=== PATIENT | male | born 1945 ===

== ENCOUNTER 2020-03-02 15:42 | Emergency (ER) | payer OTHER ==
[2020-03-02] MEDS ORDERED: GLUCAGON 1 MG/VIAL ONE ×2 (16:13→17:19)
--- NOTE | 2020-03-02 18:25 | EDPHYS ---
Physician Documentation [facility] Name: Angelito Age: 75 yrs Sex: Male : 1945 Arrival Date: 03/02/2020 Time: 15:43 Bed 2 Private MD: ED Physician Kali Samson HPI: 03/02 16:09 This 75 yrs old Unknown Male presents to ER via Wheelchair with complaints of Foreign kb Body In Throat, Choked/Choking. 16:09 The patient or guardian reports the patient has a suspected foreign body, of the kb throat. The reported likely foreign body is piece of meat. Onset: The symptoms/episode began/occurred 1 hour(s) ago. Current symptoms: foreign body sensation. Treatment Prior to Arrival: tried to flush, tried to vomit. The patient has experienced similar episodes in the past, a few times. The patient has not recently seen a physician. Pt reports he was eating steak and a piece of meat got stuck in his throat. States he has had this happen before but has always been able to get it up or down. . Historical: - Allergies: 15:52 No Known Allergies; ss - PMHx: 15:52 CVA; Hypertension; ss - PSHx: 15:52 None; ss - Immunization history:: Flu vaccine is up to date. - Social history:: Smoking status: Patient denies any tobacco usage or history of. ROS: 16:08 Constitutional: Negative for fever, chills, and weight loss, Cardiovascular: Negative kb for chest pain, palpitations, and edema, Respiratory: Negative for shortness of breath, cough, wheezing, and pleuritic chest pain, Abdomen/GI: Negative for abdominal pain, nausea, vomiting, diarrhea, and constipation, Back: Negative for injury and pain, MS/Extremity: Negative for injury and deformity, Skin: Negative for injury, rash, and discoloration, Neuro: Negative for headache, weakness, numbness, tingling, and seizure. 16:08 ENT: Positive for foreign body sensation. Exam: 16:09 Constitutional: This is a well developed, well nourished patient who is awake, alert, kb and in no acute distress. Head/Face: Normocephalic, atraumatic. Chest/axilla: Normal chest wall appearance and motion. Nontender with no deformity. No lesions are appreciated. Cardiovascular: Regular rate and rhythm with a normal S1 and S2. No gallops, murmurs, or rubs. Normal PMI, no JVD. No pulse deficits. Respiratory: Lungs have equal breath sounds bilaterally, clear to auscultation and percussion. No rales, rhonchi or wheezes noted. No increased work of breathing, no retractions or nasal flaring. Abdomen/GI: Soft, non-tender, with normal bowel sounds. No distension or tympany. No guarding or rebound. No evidence of tenderness throughout. Back: No spinal tenderness. No costovertebral tenderness. Full range of motion. Skin: Warm, dry with normal turgor. Normal color with no rashes, no lesions, and no evidence of cellulitis. MS/ Extremity: Pulses equal, no cyanosis. Neurovascular intact. Full, normal range of motion. Neuro: Awake and alert, GCS 15, oriented to person, place, time, and situation. Cranial nerves II-XII grossly intact. Motor strength 5/5 in all extremities. Sensory grossly intact. Cerebellar exam normal. Normal gait. Vital Signs: 15:50 Resp 18; Temp 97.5; Weight 81.65 kg; Height 5 ft. 8 in. (172.72 cm); Pain 5/10; ss 15:57 BP 153 / 80; Pulse 87; Resp 17; Pulse Ox 99% on R/A; ss 17:00 BP 172 / 97; Pulse 88; Resp 17; Pulse Ox 97% on R/A; hb 18:21 BP 150 / 99; Pulse 87; Resp 15; Pulse Ox 99% on R/A; hb 18:54 BP 137 / 90; Resp 79; Temp 16; Pulse Ox 97% on R/A; hb 19:30 BP 130 / 85; Pulse 71; Resp 18; Pulse Ox 97% on R/A; wh 20:30 BP 148 / 92; Pulse 70; Resp 18; Pulse Ox 98% on R/A; wh 15:50 Body Mass Index 27.37 (81.65 kg, 172.72 cm) ss MDM: 15:55 Patient medically screened. kb 16:08 Data reviewed: vital signs, nurses notes. Data interpreted: Pulse oximetry: on room air kb is 99 %. Interpretation: normal. 17:46 Counseling: I had a detailed discussion with the patient and/or guardian regarding: the kb historical points, exam findings, and any diagnostic results supporting the discharge/admit diagnosis, the need for further work-up and treatment in the hospital. 17:51 Physician consultation: Lei Gillis MD was called at 17:51. kb 18:23 Physician consultation: Lei Gillis MD was contacted at 18:23, regarding consult, kb patient's condition, and will see patient in ED, shortly, will take pt for endoscopy for FB removal. 20:25 ED course: Pt started belching and was able to get FB up and out. Pt tolerating PO kb intake now and has no FB sensation. 03/02 15:55 Order name: IV Start; Complete Time: 16:03 kb Administered Medications: 16:03 Drug: Glucagon 1 mg Route: IVP; Site: right forearm; hb 16:40 Follow up: Response: No adverse reaction hb 17:08 Drug: Glucagon 1 mg Route: IVP; Site: right forearm; hb 20:00 Follow up: Response: No adverse reaction; No change in condition Disposition: 03/03 08:31 Co-signature as Attending Physician, Kali Samson MD I agree with the assessment and kdr plan of care. Disposition: 03/02/20 20:31 Discharged to Home. Impression: Foreign body in esophagus - resolved. - Condition is Stable. - Discharge Instructions: Swallowed Foreign Body, Adult, [id number]. - Medication Reconciliation Form, Thank You Letter, Antibiotic Education, Prescription Opioid Use form. - Follow up: Lei Gillis MD; When: 2 - 3 days; Reason: Recheck today's complaints. Signatures: Margaert Thornton, ADAPTIVE PHYSICAL EDUCATION TEACHER-C ADAPTIVE PHYSICAL EDUCATION TEACHER-Ckb Kali Samson MD MD [facility] Rima Gallego RN RN Shakira Malik, CAITLIN RN Nina Gill Corrections: (The following items were deleted from the chart) 03/02 20:27 18:24 Hospitalization Ordered by Lei Gillis MD for Observation. Preliminary kb diagnosis is Foreign body in esophagus. Bed requested for Operating Room. Status is Observation. Condition is Stable. Problem is new. Symptoms are unchanged. kb 20:50 20:31 03/02/2020 20:31 Discharged to Home. Impression: Foreign body in esophagus - wh resolved. Condition is Stable. Forms are Medication Reconciliation Form, Thank You Letter, Antibiotic Education, Prescription Opioid Use. Follow up: Lei Gillis; When: 2 - 3 days; Reason: Recheck today's complaints. kb
--- NOTE | 2020-03-02 18:25 | ER ---
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 Coronavirus ss screen: Client denies travel out of the [place] in the last 14 days. At this time, the client does not indicate any symptoms associated with coronavirus-19. Ebola Screen: Patient denies travel to an Ebola-affected area in the 21 days before illness onset. Initial Sepsis Screen: Does the patient meet any 2 criteria? No. Patient's initial sepsis screen is negative. Does the patient have a suspected source of infection? No. Patient's initial sepsis screen is negative. Risk Assessment: Do you want to hurt yourself or someone else? Patient reports no desire to harm self or others. Onset of symptoms was March 02, 2020. 15:50 Method Of Arrival: Wheelchair ss 15:50 Acuity: OSVALDO 2 ss Historical: - Allergies: 15:52 No Known Allergies; ss - PMHx: 15:52 CVA; Hypertension; ss - PSHx: 15:52 None; ss - Immunization history:: Flu vaccine is up to date. - Social history:: Smoking status: Patient denies any tobacco usage or history of. Screenin:06 Abuse screen: Denies threats or abuse. Denies injuries from another. Nutritional hb screening: No deficits noted. Tuberculosis screening: No symptoms or risk factors identified. Fall Risk None identified. Assessment: 16:06 General: Appears in no apparent distress. uncomfortable, Behavior is cooperative, hb anxious. Pain: Pain currently is 5 out of 10 on a pain scale. Neuro: Level of Consciousness is awake, alert, obeys commands, Oriented to person, place, time, situation. Cardiovascular: Capillary refill < 3 seconds Patient's skin is warm and dry. Respiratory: Respiratory effort is even, unlabored, Respiratory pattern is regular, symmetrical. GI: No signs and/or symptoms were reported involving the gastrointestinal system. : No signs and/or symptoms were reported regarding the genitourinary system. EENT: No signs and/or symptoms were reported regarding the EENT system. Derm: Skin is pink, warm \T\ dry. Musculoskeletal: No signs and/or symptoms reported regarding the musculoskeletal system. 16:40 Reassessment: Pt provided with soda and a straw for PO challenge per Margaret DOAN. hb 17:10 Reassessment: Patient appears in no apparent distress at this time. Patient and/or hb family updated on plan of care and expected duration. Pain level reassessed. Patient is alert, oriented x 3, equal unlabored respirations, skin warm/dry/pink. 18:10 Reassessment: Patient appears in no apparent distress at this time. Patient and/or hb family updated on plan of care and expected duration. Pain level reassessed. Patient is alert, oriented x 3, equal unlabored respirations, skin warm/dry/pink. 18:54 Reassessment: Patient appears in no apparent distress at this time. Patient and/or hb family updated on plan of care and expected duration. Pain level reassessed. Patient is alert, oriented x 3, equal unlabored respirations, skin warm/dry/pink. 19:15 General: Appears in no apparent distress. Behavior is calm, cooperative, appropriate wh for age. Pain: Denies pain. Neuro: Level of Consciousness is awake, alert, obeys commands, Oriented to person, place, time, situation, Appropriate for age. Cardiovascular: Capillary refill < 3 seconds. Respiratory: Airway is patent Respiratory effort is even, unlabored, Respiratory pattern is regular, symmetrical. GI: No signs and/or symptoms were reported involving the gastrointestinal system. : No signs and/or symptoms were reported regarding the genitourinary system. EENT: Throat is pink. Derm: Skin is intact, is healthy with good turgor, Skin is pink, warm \T\ dry. Musculoskeletal: Circulation, motion, and sensation intact. 19:45 Reassessment: Notified Pt of wait time for OR procedure. wh 20:25 Reassessment: Pt was able to cough out foreign body in throat, per Pt he feels its not wh there anymore. PO challenge was done and Pt was able to swallow without problems. Notified Provider, went in and assessed PT. Vital Signs: 15:50 Resp 18; Temp 97.5; Weight 81.65 kg; Height 5 ft. 8 in. (172.72 cm); Pain 5/10; ss 15:57 BP 153 / 80; Pulse 87; Resp 17; Pulse Ox 99% on R/A; ss 17:00 BP 172 / 97; Pulse 88; Resp 17; Pulse Ox 97% on R/A; hb 18:21 BP 150 / 99; Pulse 87; Resp 15; Pulse Ox 99% on R/A; hb 18:54 BP 137 / 90; Resp 79; Temp 16; Pulse Ox 97% on R/A; hb 19:30 BP 130 / 85; Pulse 71; Resp 18; Pulse Ox 97% on R/A; wh 20:30 BP 148 / 92; Pulse 70; Resp 18; Pulse Ox 98% on R/A; wh 15:50 Body Mass Index 27.37 (81.65 kg, 172.72 cm) ss ED Course: 15:43 Patient arrived in ED. ag5 15:52 Triage completed. ss 15:52 Margaret Thornton F[facility]-C [facility]. kb 15:52 Kali Samson MD is Attending Physician. kb 15:52 Arm band placed on Patient placed in an exam room, on a stretcher. ss 16:03 Patient has correct armband on for positive identification. Bed in low position. Call mh5 light in reach. Side rails up X 1. Adult w/ patient. Warm blanket given. Pulse ox on. NIBP on. 16:03 Inserted saline lock: 22 gauge in right forearm, using aseptic technique. 5 16:06 Shakira Malik, RN is Primary Nurse. hb 18:24 Lei Gillis MD is Hospitalizing Provider. kb 20:30 Lei Gillis MD is Referral Physician. kb 20:48 No provider procedures requiring assistance completed. IV discontinued, intact, wh bleeding controlled, No redness/swelling at site. Administered Medications: 16:03 Drug: Glucagon 1 mg Route: IVP; Site: right forearm; hb 16:40 Follow up: Response: No adverse reaction hb 17:08 Drug: Glucagon 1 mg Route: IVP; Site: right forearm; hb 20:00 Follow up: Response: No adverse reaction; No change in condition wh Outcome: 18:24 Decision to Hospitalize by Provider. kb 20:31 Discharge ordered by . kb 20:48 Discharged to home via wheelchair, with family. 20:48 Condition: stable 20:48 Discharge instructions given to patient, family, Instructed on discharge instructions, follow up and referral plans. POC Demonstrated understanding of instructions, follow-up care, POC 20:50 Patient left the ED. Signatures: Margaret Thornton, PIANO REGULATOR INSPECTOR-C PIANO REGULATOR INSPECTOR-Rima El RN RN ss Baxter, Heather, RN RN hb Martinez, [facility] Nina Gill Carlos Manuel Chandler 5 Corrections: (The following items were deleted from the chart) 17:13 17:00 BP 142 / 78; Pulse 88bpm; Resp 17bpm; Pulse Ox 97% RA; hb hb
[2020-03-03 05:43] VITALS: TEMP 16
[2020-03-03 05:49] VITALS: BP 148/92; O2SAT 98
== END 2020-03-02 20:50 | disposition home or self-care (01) ==
LOC: ER 15:42
DX: T18.128A Food in esophagus causing other injury, initial encounter (principal); I10 Essential (primary) hypertension; Z86.73 Personal history of transient ischemic attack (TIA), and cerebral infarction without residual deficits
CPT/HCPCS: 96374; 99284; J1610 ×2